=== PATIENT | female | born 1970 | race Caucasian/White ===

== ENCOUNTER → 2024-01-24 06:34 | Outpatient (REF) | payer OTHER, SELFPAY | LOC: WDC 06:34 | PROVIDERS: ATTENDING PHYSICIAN Obstetrics & Gynecology; FAMILY PHYSICIAN Family Medicine | DX: Z12.31 Encounter for screening mammogram for malignant neoplasm of breast (principal) | CPT/HCPCS: 77063; 77067 ==

== ENCOUNTER → 2024-06-04 06:24 | Day surgery (SDC) | payer OTHER, SELFPAY | LOC: GI 06:24 | PROVIDERS: ATTENDING PHYSICIAN Internal Medicine | DX: Z12.11 Encounter for screening for malignant neoplasm of colon (principal); K63.5 Polyp of colon; K64.9 Unspecified hemorrhoids; Z86.0101 Personal history of adenomatous and serrated colon polyps; Z80.0 Family history of malignant neoplasm of digestive organs | CPT/HCPCS: 45380; 88305 ==

== ENCOUNTER → 2024-12-22 11:39 | Outpatient (REF) | payer OTHER, SELFPAY ==
[2024-12-22 14:09] LABS: Hematocrit 38.9 % (37.0-47.0); Hemoglobin 12.9 g/dL (12.0-16.0); Mean Corp Hgb Conc. 33.2 g/dL (33.0-37.0); Mean Corpuscular Hgb 28.9 pg (27.0-31.0); Red Blood Cell Count 4.47 10^6/uL (4.20-5.40); Red Cell Dist. Width 12.9 % (11.5-14.5); White Blood Cell Count 4.2 10^3/uL (4.8-10.8)
[2024-12-22 14:15] LABS: ALT (SGPT) 142 U/L (0-35); AST (SGOT) 138 U/L (14-36); Albumin 3.7 g/dl (3.5-5.0); Alkaline Phosphatase 89 U/L (38-126); Blood Urea Nitrogen 10 mg/dl (7-17); Calcium 8.8 mg/dl (8.4-10.2); Carbon Dioxide 26 mmol/L (22-30); Chloride 110 mmol/L (98-107); Glucose 118 mg/dl (70-99); Potassium 4.2 mmol/L (3.5-5.1); Sodium 140 mmol/L (135-145); Total Bilirubin 0.6 mg/dl (0.2-1.3); Total Protein 6.4 g/dl (6.3-8.2); eGFR > 60.00
[2024-12-22 16:44] LABS: Absolute Neutrophils -Man Diff 1.6 10^3/uL (1.4-6.5); Atypical Lymphocytes 15 %; Band Neutrophils 3 % (0-3); Eosinophils 1 % (0-6); Lymphocytes 37 % (20-51); Monocytes 8 % (2-9); Normal RBC Morphology Yes; Platelets Checked Yes; Segmented Neutrophils 36 % (42-75); Total Cells Counted 100
== END ==
LOC: REG 11:39
PROVIDERS: ATTENDING PHYSICIAN Family Medicine
DX: R50.9 Fever, unspecified (principal); R05.1 Acute cough
CPT/HCPCS: 36415; 71046; 80053; 85025; 86140

== ENCOUNTER 2024-12-26 00:12 | Emergency (ER) | payer OTHER, SELFPAY ==
[2024-12-26 00:17] VITALS: BP 124/75
[2024-12-26 02:57] LABS: Hematocrit 37.7 % (37.0-47.0); Hemoglobin 13.1 g/dL (12.0-16.0); Mean Corp Hgb Conc. 34.7 g/dL (33.0-37.0); Mean Corpuscular Hgb 29.4 pg (27.0-31.0); Mean Corpuscular Volume 84.7 fL (81.0-99.0); Mean Platelet Volume 9.8 fL (7.4-10.4); Platelet Count 124 10^3/uL (130-400); Red Blood Cell Count 4.45 10^6/uL (4.20-5.40); Red Cell Dist. Width 13.2 % (11.5-14.5); White Blood Cell Count 10.2 10^3/uL (4.8-10.8)
[2024-12-26 03:21] LABS: ALT (SGPT) 518 U/L (0-35); AST (SGOT) 479 U/L (14-36); Albumin 3.9 g/dl (3.5-5.0); Alkaline Phosphatase 230 U/L (38-126); Blood Urea Nitrogen 11 mg/dl (7-17); Carbon Dioxide 23 mmol/L (22-30); Chloride 111 mmol/L (98-107); Estimated Creatinine Clearance 84 ml/min; Glucose 105 mg/dl (70-99); Potassium 4.2 mmol/L (3.5-5.1); Sodium 140 mmol/L (135-145); Total Bilirubin 1.4 mg/dl (0.2-1.3); Total Protein 7.1 g/dl (6.3-8.2); eGFR > 60.00
[2024-12-26 03:41] LABS: Absolute Neutrophils -Man Diff 1.2 10^3/uL (1.4-6.5); Band Neutrophils 4 % (0-3); Lymphocytes 68 % (20-51); Monocytes 4 % (2-9); Segmented Neutrophils 8 % (42-75)
[2024-12-26 03:42] LABS: Atypical Lymphocytes 15 %; Metamyelocytes 1 % (-)
[2024-12-26 03:45] VITALS: BP 107/73
[2024-12-26 03:48] LABS: Normal RBC Morphology Yes; Platelets Checked Yes; Total Cells Counted 100
[2024-12-26 04:00] VITALS: BP 98/63
[2024-12-26 05:00] VITALS: BP 110/70
--- NOTE | 2024-12-26 05:21 | ED.GENMED ---
History of Present Illness
General
Chief Complaint: Fever
Source: patient
Time Seen by Provider: 12/26/24 05:04
History of Present Illness
History of Present Illness:
This patient is a 54-year-old female who states that last she developed a fever as high as 102 that has been intermittent yet persistent since then. She saw her doctor and had labs a chest x-ray COVID and flu tests all of which were
unremarkable. She was diagnosed with otitis media and started on antibiotic which she is still taking. Her fever and now fatigue persists. She also notes mild intermittent joint achiness and a dry cough that she has had for about a month. She
had a Lyme test done yesterday which has not yet resulted. She denies abdominal pain, nausea, vomiting, constipation, diarrhea, urinary symptoms, back pain, neck pain, photophobia, rash. She does note that she took a cruise and travel through
[place] in October. At that time she had a febrile illness lasting 2 to 3 days. She denies heavy acetaminophen use. Patient states she came to the emergency department because she was not getting answers with her PCP.
Past History
Past History
ED Past Surgical History: Gynecological and Other (Thyroidectomy)
Social History
Tobacco: Non-smoker
Alcohol: None
Drug: None
Personal:
Living: with family
Phy Exam
Physical Exam
Physical Exam:
GENERAL: Alert , in no apparent distress
EYE: pupils equal and reactive, no photophobia, EOMI, no nystagmus
NECK: Supple, no significant adenopathy.
ENT: o/p clr, mmm.
CARDIAC: Regular rate and rhythm, no murmur noted.
LUNGS: Clear breath sounds bilaterally, no acute respiratory distress, no wheezes/rales/rhonchi
ABDOMEN: Soft, without focal tenderness, no r/g, no cvat
NEUROLOGICAL: Alert and oriented, no focal neuro deficits, no meningismus
SKIN: Warm and dry, skin intact.
MUSCULOSKELETAL: No edema, well perfused.
PSYCH: Normal and appropriate interaction.
Sepsis
Sepsis Screening
Sepsis Assessment: Sepsis Ruled Out
Sepsis Screen
Sepsis Screen: Sepsis Ruled Out
Date: 12/26/24
Time: 07:09
Course
Orders/Labs/Results
Orders:
Orders
12/26/24 02:32
Complete Blood Count/With Diff Urgent
Comprehensive Metabolic Panel Urgent
Manual Differential Urgent
Monotest Urgent
Comment: ADD ON
Blood Culture Urgent
SANDRA Source: Blood/Venous
Specimen Description:
12/26/24 05:06
US Abdomen Complete/Upper Urgent
Comment:
Reason For Exam: abnl lft's, fever
12/26/24 05:59
Add On- LAB Urgent
Tests Added?: MONO
12/26/24 06:03
COVID-19 Antigen Urgent
Source: Nasal Swab
Influenza A+B Rapid Molecular Urgent
SANDRA Source: Nasal Swab
Specimen Description:
12/26/24 06:32
Urinalysis Reflex To Culture Urgent
Date Specimen was Collected: 12/26/24
Time Specimen was Collected: 06:31
Abnormal Lab Results
12/26/24
02:32
Plt Count 124 L 10^3/uL
(130-400)
Abs Neuts (Manual) 1.2 L 10^3/uL
(1.4-6.5)
Segmented Neutrophils 8 L %
(42-75)
Band Neutrophils 4 H %
(0-3)
Lymphocytes (Manual) 68 H %
(20-51)
Chloride 111 H mmol/L
(98-107)
Glucose 105 H mg/dl
(70-99)
Total Bilirubin 1.4 H mg/dl
(0.2-1.3)
AST 479 H U/L
(14-36)
ALT 518 H* U/L
(0-35)
Alkaline Phosphatase 230 H U/L
(38-126)
12/26/24 02:32
12/26/24 02:32
Vital Signs
Initial and Last Documented VS:
Initial Vital Signs
Temp Pulse Resp BP Pulse Ox
100.5 F H 109 20 124/75 97
12/26/24 00:17 12/26/24 00:17 12/26/24 00:17 12/26/24 00:17 12/26/24 00:17
Last Documented Vital Signs
Temp Pulse Resp BP Pulse Ox
98.5 F 98 20 110/70 95
12/26/24 04:07 12/26/24 05:52 12/26/24 05:52 12/26/24 05:00 12/26/24 05:52
Update Note
Update Note:
Patient presents to the Emergency Department with ___fever and fatigue
Number and Complexity of Problems Addressed at the Encounter
� Chronic conditions affecting care:
� Acute Exacerbation and/or Progression of Chronic Illness:
� Differential Diagnosis includes: But not limited to nonspecific viral illness, mono, hepatitis, endocarditis, etc. etc.
Amount and/or Complexity of Data to be Reviewed and Analyzed
� I performed an independent evaluation of and my interpretation is:
EKG:
CT:
Xrays: Reviewed from a few days ago and unremarkable COVID-negative, flu negative
Laboratory Studies: White blood cell count normal very minimal thrombocytopenia, LFT abnormalities
Other: Ultrasound vision report mobile gallstones no sonographic Smith's wall thickening pericholecystic fluid or other signs of cholecystitis CBD is unremarkable mild splenomegaly remainder of the visualized upper abdomen is
unremarkable
� Review of other/old records reveals:
� Clinical information was obtained by an independent historian:
� Prescriptions/Medications Considered but not given:
� Further testing considered but not performed:
Risk of Complications and/or Morbidity or Mortality of Patient Management
� Social determinants of health affecting care:
� Discussion with other providers (PCP, Hospitalists, Consultants, etc):
� Escalation of care including admission/observation vs risk of discharge considered:pt made aware of lft abnl, import of f/u, reasons to rted. Avoid contract sports/strenuous activity etc given splenomegaly. Blood cxs pending.
ED Attending Note
-
Portions of this chart may have been created with voice recognition software.� Occasional wrong word or��sound alike� substitutions may have occurred due to the inherent limitations of voice recognition software.
Discharge Plan
Departure
Patient Disposition: Home (Routine Discharge)
Date of Disposition: 12/26/24
Time of Disposition: 07:07
Patient with high blood pressure during this ER visit?: Yes
Condition: Good
Discharge Problem:
mono
Instructions: BLOOD PRESSURE, Mononucleosis
Referrals:
Kira Ramos MD [Family Provider] - Follow up in 2-3 days
Activity Restrictions/Additional Instructions:
PLEASE SEE ATTACHED LABS, WHICH HAVE ABNORMALITIES THAT REQUIRE CLOSE FOLLOW UP. YOU HAVE GALLSTONES. YOU HAVE MONO AND A SLIGHTLY ENLARGED SPLEEN. YOU SHOULD AVOID STRENUOUS ACTIVITY/CONTACT SPORTS FOR AT LEAST THE NEXT 4-6 WEEKS AND UNTIL YOU
ARE CLEARED BY YOUR FAMILY DOCTOR. IF YOU DEVELOP CHEST PAIN, TROUBLE BREATHING, ABDOMINAL PAIN, SEVERE HEADACHE, VOMITING, OR OTHER WORRISOME SIGNS, GO TO THE ER IMMEDIATELY!
Interventions
Interventions:
*Risk Screen - Suicide Last Done: 12/26/24 00:17
*General Assessment Last Done: 12/26/24 03:37
*Neglect/Abuse Screening Last Done: 12/26/24 00:17
*ED- Fall Risk Assessment Last Done: 12/26/24 03:37
*ED COVID-19 Vaccine History Last Done: 12/26/24 03:37
ED- Neurological Assessment Last Done: 12/26/24 03:39
ED-Skin Assessment Last Done: 12/26/24 03:46
Discharge Date and Time
Print Language: COLOMBIAN
[2024-12-26 06:42] LABS: COVID-19 Antigen Negative (Negative)
[2024-12-26 06:53] LABS: Monotest Positive (Negative)
[2024-12-26 07:05] LABS: Urine Albumin 1+ (Neg - Trace); Urine Bilirubin Negative (Negative); Urine Character Clear (Clear); Urine Color Yellow; Urine Glucose Negative (Negative); Urine Ketone Negative (Negative); Urine Leukocyte Negative (Negative); Urine Nitrite Negative (Negative); Urine Occult Blood 1+ (Negative); Urine Urobilinogen Negative (Neg - 1+)
[2024-12-26 07:06] VITALS: BP 126/68
[2024-12-26 07:18] LABS: Urine Red Blood Cell 0-2 /HPF (0-2)
[2024-12-26 07:19] LABS: Urine Bacteria Few (Negative); Urine White Cell 0-2 /HPF (0-5)
== END 2024-12-26 07:59 | disposition home or self-care (01) ==
LOC: EMR 00:12
PROVIDERS: EMERGENCY PHYSICIAN Emergency Medicine; FAMILY PHYSICIAN Family Medicine
DX: B27.90 Infectious mononucleosis, unspecified without complication (principal)
CPT/HCPCS: 99284; 76700; 80053; 81003; 81015; 85025; 86308; 87040; 87502; 87811

== ENCOUNTER → 2025-01-19 07:18 | Outpatient (REF) | payer OTHER, SELFPAY | LOC: HWRAD 07:18 | PROVIDERS: ATTENDING PHYSICIAN Family Medicine | DX: R16.1 Splenomegaly, not elsewhere classified (principal) | CPT/HCPCS: 76700 ==

== ENCOUNTER → 2025-01-29 06:38 | Outpatient (REF) | payer OTHER, SELFPAY | LOC: WDC 06:38 | PROVIDERS: ATTENDING PHYSICIAN Obstetrics & Gynecology | DX: Z12.31 Encounter for screening mammogram for malignant neoplasm of breast (principal) | CPT/HCPCS: 77063; 77067 ==

== ENCOUNTER → 2025-08-10 08:59 | Outpatient (REF) | payer OTHER, SELFPAY | LOC: WDC 08:59 | PROVIDERS: ATTENDING PHYSICIAN Obstetrics & Gynecology; FAMILY PHYSICIAN Family Medicine | DX: R92.333 Mammographic heterogeneous density, bilateral breasts (principal) | CPT/HCPCS: 76641 ==